=== PATIENT | male | born 1960 | race Caucasian/White ===

== ENCOUNTER 2019-10-04 07:20 | Emergency (ER) | payer SELFPAY ==
[~2019-10-04] VITALS: Ht 177.8 cm; Wt 90.0 kg
[2019-10-04] MEDS ORDERED: LIDOcaine 1% 30ml preserv. free vial IJ ONE (08:05)
[2019-10-04] MEDS ORDERED: TETanus/Pertussis (Acell)/Diphther VAC/PF (Tdap-Adult) 0.5ml syringe IMVAC ONE (08:05)
[2019-10-04] MEDS ORDERED: CEPH500C5 PO (10:29)
[2019-10-04] MEDS ORDERED: ceFAZolin 1gm IM kit IM ONE (10:30)
[2019-10-04 10:46] VITALS: BP 174/115
== END 2019-10-04 11:08 | disposition home or self-care (01) ==
LOC: ER 07:20
DX: S62.522A Displaced fracture of distal phalanx of left thumb, initial encounter for closed fracture (principal); S61.112A Laceration without foreign body of left thumb with damage to nail, initial encounter; F12.90 Cannabis use, unspecified, uncomplicated; Z72.89 Other problems related to lifestyle; Z79.899 Other long term (current) drug therapy; W26.8XXA Contact with other sharp object(s), not elsewhere classified, initial encounter; Y93.89 Activity, other specified; Y92.89 Other specified places as the place of occurrence of the external cause; Y99.8 Other external cause status
CPT/HCPCS: 11760; 73140; 90471; 90715; 96372; 99284; J0690